=== PATIENT | male | born 1970 | race Caucasian/White ===

== ENCOUNTER → 2020-03-12 | Outpatient (CLI) | payer OTHER ==
[2015-06-07 02:45] VITALS: BP 138/82
== END ==
LOC: LAB 17:10
PROVIDERS: ATTEND Nurse Practitioner Family
DX: R73.09 Other abnormal glucose (principal); R79.89 Other specified abnormal findings of blood chemistry; I10 Essential (primary) hypertension; F10.20 Alcohol dependence, uncomplicated
CPT/HCPCS: 82140; 84425

== ENCOUNTER → 2020-11-14 | Outpatient (CLI) | payer OTHER ==
[2015-06-07 02:45] VITALS: BP 138/82
--- NOTE | 2020-11-14 15:59 | RAD ---
Bilateral lower extreme knee arterial duplex ultrasound study without comparison for leg pain, periph eral arterial disease, nicotine addiction, diabetes. TECHNIQUE AND FINDINGS: Real-time grayscale and color and spectral Doppler evaluation of the arteries of lower extremities is performed. Waveforms are monophasic and parvus tardus throughout all distrib utions suggesting hemodynamically significant aortoiliac inflow disease. There is a short segment occ lusion of the right common femoral artery. Focally elevated velocity in the distal superficial femora l artery may indicate severe focal stenosis in this location. Similar abnormality seen in the right p eroneal artery. The left common femoral artery is occluded distally. There is markedly elevated veloc ity at the origin of the deep femoral artery suggesting high-grade stenosis in this location as well. This combination of disease may markedly reduced collateral flow to left lower extremity. The proxim al and mid left superficial femoral artery are occluded in their entirety. Remaining vessels are mcintosh nt with monophasic parvus tardus flow. There is a focal elevation of velocities within the left peron eal artery likely due to hemodynamically significant stenosis as well. IMPRESSION: 1. 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 There are likely several additional tandem areas of significant stenosis p articularly involving the bilateral peroneal arteries. There is also high-grade stenosis of the left deep femoral artery which may significantly reduced effectiveness of collateral flow to this limb. Electronically signed by: Ash Ceballos MD (11/14/2020 3:57 PM) [id number]
== END ==
LOC: US 12:44
PROVIDERS: ATTEND Nurse Practitioner Family
DX: I65.23 Occlusion and stenosis of bilateral carotid arteries (principal); I77.1 Stricture of artery
CPT/HCPCS: 93925

== ENCOUNTER → 2021-01-01 | Outpatient (CLI) | payer OTHER ==
[2015-06-07 02:45] VITALS: BP 138/82
--- NOTE | 2021-01-01 09:51 | RAD ---
EXAM: Bilateral hands, 2 views. HISTORY: Pain. COMPARISON: None. FINDINGS: 2 views of both hands are obtained. There is a healed right fifth metacarpal fracture. Ther e is no acute fracture, dislocation or subluxation. The alignment and joint spaces are unremarkable. IMPRESSION: No acute osseous finding. Electronically signed by: Florida Cordova MD (01/01/2021 9:49 AM) [id number]
== END ==
LOC: RAD 09:16
PROVIDERS: ATTEND Family Medicine
DX: M79.641 Pain in right hand (principal); M79.642 Pain in left hand
CPT/HCPCS: 73120

== ENCOUNTER 2021-11-19 20:22 | Emergency (ER) | payer OTHER ==
[~2021-11-19] VITALS: Ht 177.8 cm; Wt 56.6 kg
--- NOTE | 2021-11-19 21:35 | PHYS DOC ---
Past History Past Surgical History: Coronary Bypass Surgery, Other Additional Past Surgical Histo: 4 vessel bypass (RAYMOND LUNA APRN) Additional Smoking Information: 1/2 pack/day Alcohol Use: Occasionally (ARYMOND LUNA APRN) Adult General Chief Complaint Chief Complaint: SKIN PROBLEM HPI HPI Patient is a 51-year-old male who presents to the emergency department complaining of left diabetic foot pain. Patient reports he has been treated at the [facility] by Dr. Velazquez, has been performing his cleansings as directed, reports an increase in pain over the past few days, states he is being set up with a vascular surgeon for ongoing evaluation of his diabetic foot problems. Patient denies recent fever or chills, denies chest pains nausea, vomiting, diarrhea, chest or nasal congestion. Patient denies other physical complaints or physical concerns. (RAYMOND LUNA APRN) Review of Systems Review of Systems 14 body systems of review of systems have been reviewed. See HPI for pertinent positives and negative responses, otherwise all other systems are negative, nonpertinent or noncontributory. Constitutional: Negative except as outlined in HPI above. Skin: Negative except as outlined in HPI above. Eyes: Negative except as outlined in HPI above. HENT: Negative except as outlined in HPI above. Respiratory: Negative except as outlined in HPI above. Cardiovascular: Negative except as outlined in HPI above. GI: Negative except as outlined in HPI above. : Negative except as outlined in HPI above. Musculoskeletal: Negative except as outlined in HPI above. Integument: Negative except as outlined in HPI above. Neurologic: Negative except as outlined in HPI above. Endocrine: Negative except as outlined in HPI above. Lymphatic: Negative except as outlined in HPI above. Psychiatric: Negative except as outlined in HPI above. (RAYMOND LUNA APRN) Allergies Allergies Allergies Coded Allergies Type Severity Reaction Last Updated Verified No Known Drug Allergies 11/19/21 No (RAYMOND LUNA APRN) Physical Exam Physical Exam Constitutional: Well developed, well nourished, no acute distress, non-toxic appearance. 51-year-old male in no apparent distress. HENT: Normocephalic, atraumatic. Eyes: Conjunctiva normal, no discharge. Neck: Normal range of motion, no stridor. Cardiovascular: No cyanosis appreciated, distal cap refill less than 2 seconds. Lungs & Thorax: Patient is in no respiratory distress, no audible adventitious lung sounds appreciated. Abdomen: Nontender, no abnormalities noted. Skin: Warm, dry, no erythema, no rash. See extremity note for focused skin examination Back: No tenderness, no deformities. Extremities: No tenderness, no cyanosis, no clubbing, ROM intact, no edema. Except for right foot, toes 1 through 5 with diabetic ulcers, wrapped by wound care, there is no erythema or lymphangitis appreciated, there is no edema or swe lling, 2+ bilateral dorsalis pedis pulses. Satisfactory flexion of toes. Neurologic: Alert and oriented X 3, normal motor function, normal sensory function, no focal deficits noted. Psychologic: Affect normal, judgement normal, mood normal. (RAYMOND LUNA APRN) Current Patient Data Vital Signs Vital Signs Date Time Temp Pulse Resp B/P (MAP) Pulse Ox O2 Delivery O2 Flow Rate FiO2 11/19/21 20:36 98.0 87 18 141/82 (101) 98 Room Air (RAYMOND LUNA APRN) EKG EKG [] (RAYMOND LUNA APRN) Radiology/Procedures Radiology/Procedures [] (RAYMOND LUNA APRN) Heart Score C/O Chest Pain: No Risk Factors: Risk Factors: DM, Current or recent (<one month) smoker, HTN, HLP, family history of CAD, obesity. Risk Scores: Risk Factors: DM, Current or recent (<one month) smoker, HTN, HLP, family history of CAD, obesity. (RAYMOND LUNA APRN) Course & Med Decision Making Course & Med Decision Making Pertinent Labs and Imaging studies reviewed. (See chart for details) 51-year-old male, vital signs reviewed, presents to the emergency department concerning acute diabetic foot pain. Physical examination concerning for diabetic foot ulcers of the left foot, patient had dressings placed, has close follow-up with the [facility] and sees Dr. Yoo for diabetic foot ulcer care, has an appointment this coming Tuesday for reevaluation and ongoing management, is currently being set up with a vascular surgeon for evaluation of diabetic foot ulcers. Patient's main concern is pain control today in the emergency department. The patient's diabetic toes are not eschars, there is satisfactory cap refill, discussed with patient will give 1 Percocet in the emergency department today for pain. Will prescribe a few for home, will also start patient on Augmentin for underlying suspicion of infectious process, discussed with patient strict follow-up with primary care for any further narcotic prescription medications. Patient gave verbal understanding of and is amenable to ED discharge planning. Patient is thankful and wishes to go home at this time. Discussed with the patient all findings and diagnostic testing as well as the need to follow-up with their primary care provider for further evaluation and treatment or return to the ED if any new or worsening symptoms. Strict return precautions were also discussed at length, the patient voiced understanding and agreement with the discharge planning. The patient was nontoxic in appearance, in no apparent distress, and hemodynamically stable at the time of disposition. (RAYMOND LUNA APRN) Course & Med Decision Making Did not see or evaluate patient. Did not discuss patient with [facility]IDE. Agree with [facility] EDUC[facility] AIDE's work-up and disposition per note (ARIES CHIU MD) Dragon Disclaimer Dragon Disclaimer This electronic medical record was generated, in whole or in part, using a voice recognition dictation system. (RAYMOND LUNA APRN) Departure Departure: Impression: Primary Impression: Left foot pain Disposition: HOME / SELF CARE / HOMELESS Condition: GOOD Referrals: KERVIN SALINAS MD (PCP) Additional Instructions: You were seen today in the emergency department for left foot pain. As we discussed please continue to cleanse and dress your diabetic foot ulcers as directed by your primary care provider. Please keep your appointment for next Tuesday. Continue to take all home medications. As we discussed I am prescribing you a few pain medication tablets for severe pain. Do not drive or operate heavy machinery while taking these medications. Return to the emergency department for worsening symptoms or other concerns. Thank you for visiting our Emergency Department. It was a pleasure taking care of you today in the emergency department and we appreciate you trusting us with your care. If any additional problems come up don't hesitate to return to visit us. Please follow up with your primary care provider so they can plan additional care if needed and know about the problem that you had. If symptoms worsen come back to the Emergency Department. Any concerning symptoms that start such as chest pain, shortness of air, weakness or numbness on one side of the body, running high fevers or any other concerning symptoms return to the ER. Scripts Sulfamethoxazole/Trimethoprim (BACTRIM DS TABLET) 1 Each Tablet 1 TAB PO BID for diabetic foot infection for 10 Days, #20 TAB 0 Refills Prov: RAYMOND LUNA APRN 11/19/21 RAYMOND LUNA APRN Nov 19, 2021 21:35 ARIES CHIU MD Nov 19, 2021 22:06
[2021-11-19] MEDS ORDERED: SULF1TAB24 PO (21:51)
[2021-11-19] MEDS ORDERED: SMZ/TMP 800/160MG TABLET. PO ONE (22:00)
[2021-11-19] MEDS ORDERED: oxyCODONE/APAP 5/325 1 TAB TABLET PO ONE (22:00)
[2021-11-19 22:10] VITALS: BP 138/78
== END 2021-11-19 22:13 | disposition home or self-care (01) ==
LOC: ER 20:22 → MERGE 20:22 → ER 22:13
DX: M79.672 Pain in left foot (principal); E11.9 Type 2 diabetes mellitus without complications; F17.200 Nicotine dependence, unspecified, uncomplicated; Z95.1 Presence of aortocoronary bypass graft
CPT/HCPCS: 99283